=== PATIENT | female | born 1955 | race African-American/Black ===

== ENCOUNTER 2020-05-19 15:50 | Emergency (ER) | payer OTHER, SELFPAY ==
--- NOTE | ~2020-05-19 | CT_ITS ---
EXAMINATION: CT brain wo con EXAM DATE: 05/19/2020 18:58 INDICATION: Headache, dizziness for one day. TECHNIQUE: Spiral CT of the head was performed without contrast. Axial, coronal and sagittal images were reviewed. The dose-length product (DLP) for this examination was 605.33 mGy-cm. The exposure w as tailored according to patient size, and iterative reconstruction (ASIR) was used as additional dos e reduction technique. There is no prior study for comparison. FINDINGS: There is no acute intraparenchymal hemorrhage. No evidence of intraparenchymal brain mass lesion. No evidence of acute infarction. Please note that initial head CT has limited sensitivity f or small or acute infarctions. There is mild periventricular and subcortical hypodensity, nonspecific but probably related to small vessel ischemic disease. There is mild prominence of the sulci and v entricles related to cerebral atrophy. There is intracranial carotid arteriosclerosis. There are n o extra-axial collections. There is no mass effect or midline shift. The orbits are unremarkable. Soft tissue is unremarkable. The visualized sinuses and mastoid air cells are well aerated. IMPRESSION: 1. No acute intracranial findings. 2. Chronic age related findings. Reviewed, dictated and finalized at location A.
--- NOTE | ~2020-05-19 | XR_ITS ---
EXAMINATION: XR chest 2V DATE: 05/19/2020 17:41 INDICATION: Dizziness. Body aches. TECHNIQUE: Frontal and lateral views of the chest were obtained. COMPARISON: None. FINDINGS: The chest demonstrates clear lungs without pneumonia, pleural effusion, or pneumothorax. Th e heart size is normal. IMPRESSION: 1. No acute cardiopulmonary disease. Reviewed, dictated and finalized at location A.
[2020-05-19 16:19] VITALS: BP 121/74; PULSE 105; RESP 18; TEMP 36.7; O2SAT 98
--- NOTE | 2020-05-19 16:19 | ECG_ITS ---
Measurements Intervals [place] Rate: 108 P: 46 VA: 149 QRS: -40 QRSD: 76 T: 45 QT: 303 QTc: 407 Interpretive Statements SINUS TACHYCARDIA POSSIBLE LEFT ATRIAL ENLARGEMENT LEFT AXIS DEVIATION LOW QRS VOLTAGE IN PRECORDIAL LEADS CONSIDER INFERIOR INFARCT, AGE INDETERMINATE ANTEROSEPTAL INFARCT, AGE INDETERMINATE BORDERLINE T WAVE ABNORMALITY- HIGH LATERAL LEADS BASELINE ARTIFACT- I, II, AVR ABNORMAL ECG Electronically Signed On 05-20-2020 6:57:46 CDT by Shan Blanchard D.O.
[2020-05-19 16:36] LABS: Basophils Percent Auto 0.3 % (0.2-1.2); Hematocrit 44.2 % (37.0-47.0); Hemoglobin 15.2 g/dL (12.0-15.0); Immature Granulocyte Absolute 0.02 K/mm3 (0.00-0.031); Immature Granulocyte Percent A 0.3 % (0-0.5); Lymphocytes Absolute Auto 0.57 K/mm3 (0.9-3.2); Lymphocytes Percent Auto 9.5 % (18.3-44.2); Mean Corpuscular HGB Conc 34.4 g/dl (32-36); Mean Corpuscular Volume 90.2 fl (80-100); Mean Platelet Volume 10.8 fl (7.4-10.4); Monocytes Absolute Auto 0.3 K/mm3 (0.1-0.6); Monocytes Percent Auto 5.2 % (2.6-8.5); Neutrophils Absolute Auto 5.1 K/mm3 (1.3-6.7); Neutrophils Percent Auto 84.7 % (45.5-73.1); Platelet Count Result 151 k/mm3 (150-375); Red Cell Distribution Width 12.6 % (11.5-14.5)
[2020-05-19 16:48] LABS: Alanine Aminotransferase 32 U/L (4-35); Albumin Level 4.2 g/dL (3.5-5.1); Alkaline Phosphatase 85 U/L (38-126); Anion Gap 10 mmol/L (8-16); Aspartate Amino Transferase 43 U/L (14-36); Bilirubin,Total 0.8 mg/dL (0.2-1.3); Blood Urea Nitrogen 18 mg/dL (7-17); Calcium 9.5 mg/dL (8.4-10.2); Carbon Dioxide 25 mmol/L (22-30); Chloride 101 mmol/L (98-107); Estimated CRCL calculation 48 ml/min; Estimated Glomerular Filt Rate 56; Glucose 156 mg/dL (65-105); Potassium 3.3 mmol/L (3.4-5.0); Sodium 136 mmol/L (137-145)
[2020-05-19 16:55] LABS: Add Urine Microscopic? YES; Appearance Urine Clear (Clear); Bacteria Urine Trace /hpf; Bilirubin Urine Negative (Negative); Blood Urine Negative (Negative); Color Urine Yellow (Yellow); Glucose Urine UA Negative (Negative); Ketones Urine Negative (Negative); Leukocyte Esterase Ur 3+ LEU/UL (Negative); Mucus Urine Rare /lpf; Nitrate Urine Negative (Negative); Protein Urine 1+ mg/dL (Negative); Specific Grav Ur 1.021 (1.001-1.035); Squamous Epithelial Cell Urine Many /hpf (Few); Urobilinogen Urine Negative mg/dL (<2.0)
[2020-05-19 17:45] VITALS: BP 143/79; PULSE 107; RESP 16; O2SAT 96
--- NOTE | 2020-05-19 18:09 | ED.DIZZY ---
HPI - Dizziness General Chief Complaint: Dizziness Stated Complaint: Body Aches Time Seen by Provider: 05/19/20 18:02 Source: patient Mode of arrival: ambulatory Limitations: no limitations History of Present Illness HPI Narrative: Patient is a 64-year-old female complaining of dizziness accompanied by headache that started today. Patient states her dizziness described as the room spinning worse with head movement. Patient states she has a history of vertigo. Patient's headache is generalized, dull ache, 4 out of 10, nonradiating. Patient denies any speech or visual disturbance, weakness, numbness, unsteady gait, chest pain, shortness of breath, abdominal pain, nausea vomiting, fever or chills. Patient denies any neck pain or stiffness. Related Data Home Medications Medication Instructions Recorded Confirmed atorvastatin 40 mg PO HS 05/19/20 hydrochlorothiazide 25 mg PO DAILY 05/19/20 metformin 500 mg PO DAILY 05/19/20 quinapril mg 05/19/20 Allergies Allergy/AdvReac Type Severity Reaction Status Date / Time No Known Allergies Allergy Verified 05/19/20 17:56 Review of Systems Review of Systems: All systems reviewed & are unremarkable except as noted in HPI and below Constitutional: Constitutional: Denies body ache(s), Denies chills, Denies excessive sweating, Denies fatigue, Denies fever(s), Denies headache(s), Denies lethargy, Denies malaise, Denies weakness and Denies weight loss Eyes: Eyes: Denies blurry vision, Denies change in vision and Denies loss of vision ENT: Denies dizziness, Denies ear discharge, Denies headache(s), Denies lip swelling, Denies epistaxis, Denies nasal congestion, Denies neck pain, Denies throat swelling and Denies tongue swelling Cardiovascular: Cardiovascular: Denies chest pain, Denies chest pain at rest, Denies chest pain with activity, Denies diaphoresis, Denies rapid heart rate, Denies edema, Denies irregular heart rhythm, Denies lightheadedness, Denies palpitations, Denies dyspnea and Denies dyspnea on exertion Respiratory: Respiratory: Denies chest congestion, Denies cough, Denies hemoptysis, Denies dyspnea and Denies dyspnea on exertion Gastrointestinal: Gastrointestinal: Denies abdominal pain, Denies melena, Denies hematochezia, Denies diarrhea, Denies nausea, Denies vomiting and Denies hematemesis Musculoskeletal: Musculoskeletal: Denies abnormal gait, Denies deformity, Denies joint swelling, Denies limited range of motion, Denies neck pain and Denies numbness Neurologic: Denies Abnormal speech present, Denies abnormal gait, Denies confusion, Denies focal weakness, Denies loss of vision, Denies numbness, Denies Other visual disturbances, Denies Sensory deficit (Neuro) and Denies weakness Psychiatric: Psychiatric: Denies confusion, Denies depression, Denies auditory hallucinations, Denies homicidal ideation and Denies suicidal ideation Endocrine: Endocrine: Denies cold intolerance, Denies excessive sweating, Denies fatigue, Denies heat intolerance and Denies palpitations Hematologic/Lymphatic: Hematologic/Lymphatic: Denies easy bleeding and Denies easy bruising Allergic/Immunologic: Allergic/Immunologic: Denies lip swelling, Denies throat swelling and Denies tongue swelling PMFSH Social History Social History Gender identity (if verbalized by the patient): Female Exam Const: General: cooperative, healthy appearing, comfortable, no acute distress, well developed, alert and awake; No confusion Orientation/consciousness: oriented to person, oriented to place, oriented to time, patient oriented x3 and No confusion Limitations: no limitations HENMT: Head: normal to inspection, normocephalic and atraumatic Ears: hearing grossly normal bilaterally, TM normal on the right and TM normal on the left General nose exam: Normal external nose present, Normal nares present and No nasal discharge present Face and sinus: normal facial exam Mouth: Yes Normal oral and palatal mucosa pre
[2020-05-19 18:33] LABS: Troponin I < 0.012 ng/mL (0.000-0.034)
[2020-05-19] MEDS: SODIUM CHLORIDE 0.9% IV 1,000 ML 999 ML IV CONT (18:37)
[2020-05-19] MEDS: PROMETHAZINE HCL 25 MG/ML AMPUL 12.5 MG IV PUSH (18:38)
[2020-05-19] MEDS: POTASSIUM CHLORIDE 20 MEQ PACKET (FOR LIQUID) PO (20:20)
[2020-05-19 20:22] VITALS: BP 145/82; PULSE 105; RESP 16; TEMP 36.6; O2SAT 96
== END 2020-05-19 20:37 | disposition home or self-care (01) ==
PROVIDERS: Emergency Medicine; Emergency Provider Emergency Medicine; PCP Internal Medicine
DX: H81.10 Benign paroxysmal vertigo, unspecified ear (principal); E87.6 Hypokalemia; R51.9 Headache, unspecified; R00.0 Tachycardia, unspecified; R94.31 Abnormal electrocardiogram [ECG] [EKG]
CPT/HCPCS: 36415; 70450; 71046; 80053; 81001; 84484; 85025; 87086; 93005; 96361; 96374; 99284; A9270; J2550; J7030

== ENCOUNTER 2021-10-22 08:59 | Emergency (ER) | payer SELFPAY ==
--- NOTE | ~2021-10-22 | CT_ITS ---
EXAMINATION: CT hip LT wo con DATE: 10/22/2021 10:36 INDICATION: Left hip pain with ambulation TECHNIQUE: High resolution computed tomography (CT) of the left hip was performed without intravenous contrast. Additional sagittal and coronal reconstructions were performed. The dose-length product wa s 184.90 mGy-cm. COMPARISON: Left hip radiographs dated 10/22/2021 FINDINGS: Bone alignment is normal. No fracture. Subtle chondrocalcinosis at the left hip. Mild osteoarthritis at the left hip and sacroiliac joint. No left hip joint effusion or other abnormal fluid collections. Small amount of heterotopic ossification at the left ischial tuberosity origin of the left hamstring tendon related to chronic trauma or enthesopathy. Moderate disc height loss with vacuum phenomena at L5-S1. Small amount of retained barium within a few sigmoid diverticula. The uterus is not identifie d and has likely been surgically resected. IMPRESSION: 1. Mild left hip and sacroiliac osteoarthritis. No left hip joint effusion or acute osseous abnormali ty. Reviewed, dictated and finalized at location A. IMPRESSION: 1. Mild left hip and sacroiliac osteoarthritis. No left hip joint effusion or a cute osseous abnormality.
--- NOTE | ~2021-10-22 | XR_ITS ---
EXAMINATION: XR hip LT 2V w AP pelvis DATE: 10/22/2021 09:39 INDICATION: Nontraumatic lateral left hip pain TECHNIQUE: Anteroposterior view of the pelvis and anteroposterior and frog-leg lateral views of the l eft hip were obtained. COMPARISON: None. FINDINGS: Bone alignment is normal. No fracture. Bilateral hip and left sacroiliac joint spaces are normal. Mil d osteoarthritis at the right sacroiliac joint. L4 laminectomy with combined instrumented anterior an d posterior L4-L5 spinal fusion with interbody bone graft cages and bilateral vertical walter and pedicl e screw fixation. Multiple metallic densities in the left abdomen and pelvis likely retained barium w ithin colonic diverticula. Small heterotopic ossicle projecting over the lateral right pelvis. IMPRESSION: 1. Unremarkable left hip. No acute osseous abnormality or arthritis. Reviewed, dictated and finalized at location A.
[2021-10-22 09:05] VITALS: BP 144/79; PULSE 110; RESP 16; TEMP 37; O2SAT 100
--- NOTE | 2021-10-22 10:14 | ED.GENADULT ---
HPI - General Adult General Chief complaint: Extremity Injury, Lower Stated complaint: left hip pain x12 days Time Seen by Provider: 10/22/21 09:24 History of Present Illness HPI narrative: 66-year-old female presenting to the emergency department for evaluation of left hip pain. Patient states she has had left hip pain for approximately 12 days. Patient is unsure of any specific fall or injury. Patient did have follow-up at outside hospital and did have negative films. Patient was provided medications for pain control but states she is still having increased pain with ambulation. Patient describes left lateral hip pain. Patient states she does have intermittent numbness but denies any current numbness or weakness. Patient does have a prior history of lower back pain and has had previous follow-up with the pain clinic. Patient did have spinal surgery in 2010. Related Data Home Medications Medication Instructions Recorded Confirmed atorvastatin 40 mg PO HS 05/19/20 hydrochlorothiazide 25 mg PO DAILY 05/19/20 metformin 500 mg PO DAILY 05/19/20 quinapril mg 05/19/20 celecoxib [Celebrex] 200 mg PO DAILY 10/22/21 cyclobenzaprine [Flexeril] 5 mg PO TID 10/22/21 Allergies Allergy/AdvReac Type Severity Reaction Status Date / Time No Known Allergies Allergy Verified 10/22/21 09:13 Review of Systems Review of Systems: CONSTITUTIONAL: Denies fever, chills, or sweats. EYES: Denies visual changes, redness, or discharge. ENT: Denies rhinorrhea, congestion, sore throat, or otalgia. CARDIOVASCULAR: Denies chest pain, palpitations, or edema. RESPIRATORY: Denies cough or dyspnea. GASTROINTESTINAL: Denies abdominal pain, nausea, vomiting, or diarrhea. GENITOURINARY: Denies dysuria or hematuria. SKIN: Denies rash or itching. MUSCULOSKELETAL: Chronic left hip pain NEUROLOGIC: Denies headache, numbness, or weakness. PMFSH Social History Social History Gender identity (if verbalized by the patient): Female Exam Narrative: APPEARANCE: Well appearing, no pain, no distress, well-nourished. HEAD: normocephalic, atraumatic. EYES: PERRLA/EOMI, conjunctivae clear. THROAT: Pharynx clear, no exudate. NECK: Supple. No adenopathy, no masses. RESPIRATORY: Airway patent, respirations nonlabored. Clear to auscultation bilaterally, no rales, rhonchi, wheezing. CARDIOVASCULAR: Regular rate and rhythm without murmurs rubs or gallops. ABDOMINAL: Soft, nontender, nondistended, normal bowel sounds MUSCULOSKELETAL: Moves all extremities. Left lateral hip tenderness to palpation. No pain with passive range of motion. NEURO: Alert. Cranial nerves II through XII intact. Grossly intact SKIN: Warm, dry. Normal Color Course Course Emergency Course: Patient was updated on the results of her x-ray and CT. No acute fracture or dislocation. CT did show evidence of osteoarthritis. Patient was encouraged to have close follow-up with orthopedics regarding her osteoarthritis. Patient was also provided crutches for limited weightbearing and comfort. All questions and concerns were addressed. Patient was in no distress at time of discharge from the emergency department. Vital Signs Vital signs: Vital Signs Temperature 98.6 F 10/22/21 09:05 Pulse Rate 110 H 10/22/21 09:05 Respiratory Rate 16 10/22/21 09:05 Blood Pressure 144/79 H 10/22/21 09:05 Pulse Oximetry 100 10/22/21 09:05 Temperature 98.6 F 10/22/21 09:05 Pulse Rate 110 H 10/22/21 09:05 Respiratory Rate 16 10/22/21 09:05 Blood Pressure 144/79 H 10/22/21 09:05 Pulse Oximetry 100 10/22/21 09:05 Medical Decision Making Vital Signs Vital Signs: Vital Signs Temperature 98.6 F 10/22/21 09:05 Pulse Rate 110 H 10/22/21 09:05 Respiratory Rate 16 10/22/21 09:05 Blood Pressure 144/79 H 10/22/21 09:05 Pulse Oximetry 100 10/22/21 09:05 Temperature 98.6 F 10/22/21 09:05 Pulse Rate 110 H 10/22/21 09:05 Respiratory Rate 16 10/22/21 09:
[2021-10-22] MEDS: HYDROcodone/acetaminophen (*CRX) 5-325 MG TABLET 1 TAB PO (11:27)
== END 2021-10-22 11:30 | disposition home or self-care (01) ==
PROVIDERS: Emergency Provider Emergency Medicine; PCP Internal Medicine
DX: M16.12 Unilateral primary osteoarthritis, left hip (principal); M46.1 Sacroiliitis, not elsewhere classified
CPT/HCPCS: 73502; 73700; 99284; A9270